=== PATIENT | female | born 1975 | race Caucasian/White ===

== ENCOUNTER 2020-12-12 22:55 | Emergency (ER) | payer OTHER ==
--- NOTE | 2020-12-13 00:12 | NUR ---
Called to ER with Dr Crespo in attendance with this RN. Pt denies any related concerns at this time. Non Stress Test performed with HR of 140 with Moderate Variability, Positive Accelerations and no decelerations. Occasional mild ctx noted with soft resting tone palpated, positive movement palpated.
== END 2020-12-12 23:55 | disposition home or self-care (01) ==
LOC: FER 22:55
DX: O99.891 Other specified diseases and conditions complicating pregnancy (principal); M26.609 Unspecified temporomandibular joint disorder, unspecified side; O24.913 Unspecified diabetes mellitus in pregnancy, third trimester; Z3A.36 36 weeks gestation of pregnancy
CPT/HCPCS: 99283